=== PATIENT | male | born 1940 | race Caucasian/White ===

== ENCOUNTER → 2019-05-05 | Outpatient (CLI) | payer MEDICARE, BC ==
[~2019-05-05] MED LIST: BAYER CHEWABLE81 MG PO; CARDIZEM CD360 MG PO; HUMALOG100 UNIT/1; LASIX 20 MG TAB20 MG PO; LISINOPRIL PO; MULTIVITAMIN PO; PRAVASTATIN PO; VITAMIN D PO; VITAMINC500 PO
== END ==
LOC: M.RAD 15:38
DX: Z13.820 Encounter for screening for osteoporosis (principal); M19.90 Unspecified osteoarthritis, unspecified site; M54.5 Low back pain; Z87.81 Personal history of (healed) traumatic fracture

== ENCOUNTER 2021-04-20 11:27 | Emergency (ER) | payer MEDICARE, BC ==
[~2021-04-20] VITALS: Ht 175.3 cm; Wt 102.9 kg
[2021-04-20 12:10] LABS: URINE BILIRUBIN NEGATIVE (Negative); URINE BLOOD NEGATIVE (Negative); URINE CLARITY CLEAR; URINE COLOR YELLOW; URINE GLUCOSE-RANDOM NEGATIVE (Negative); URINE KETONES NEGATIVE (Negative); URINE LEUKOCYTES NEGATIVE (Negative); URINE NITRITE NEGATIVE (Negative); URINE PROTEIN NEGATIVE (Negative)
[2021-04-20 12:18] LABS: ABSOLUTE MONOCYTES 0.6 thou/uL (0.0-1.2); BASOPHILS 0.3 %; EOSINOPHILS 0.3 %; HEMATOCRIT 43.3 % (42.0-52.0); HEMOGLOBIN 15.3 gm/dL (14.0-18.0); MCHC 35.3 g/dL (28.0-37.0); MCV 93.4 fL (80.0-100.0); MONOCYTES 5.7 %; MPV 7.9 fl. (7.2-11.1); NUCLEATED RBCS 0 /100WBC; PLATELET COUNT* 162 thou/uL (150-400); POLYS 84.7 %; RBC 4.63 mil/uL (4.50-6.00); RDW-CV 12.8 % (10.5-14.5); WBC 10.6 thou/uL (4.0-11.0)
[2021-04-20 12:26] LABS: CREATININE 1.5 mg/dL (0.6-1.3); POTASSIUM 4.1 mmol/L (3.5-5.1)
[2021-04-20 14:34] VITALS: BP 143/60
--- NOTE | 2021-04-21 09:48 | EKG ---
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1940 Requested By: Billy Ochoa Order Number: [id number] MD: William Valenzuela Measurements Intervals [place] Rate: 78 P: 51 NC: 215 QRS: -3 QRSD: 107 T: -40 QT: 404 QTc: 461 Interpretive Statements Sinus rhythm Atrial premature complexes Borderline prolonged NC interval Anteroseptal infarct, old Borderline T abnormalities, inferior leads No previous ECG available for comparison Electronically Signed On 04-21-2021 9:47:48 CDT by William Valenzuela [email or web address] <ELECTRONICALLY SIGNED> By: William Valenzuela MD, FACC 04/21/21 0947 1127 1127 William Valenzuela MD, [facility] /EPI
[2021-04-21] MEDS ORDERED: CIPROFLOXACIN500 M1 PO (12:39)
[2021-04-21] MEDS ORDERED: FLAGYL500 M1 PO (12:39)
== END 2021-04-20 14:35 | disposition home or self-care (01) ==
LOC: M.ERS 11:27
PROVIDERS: Emergency Medicine
DX: E86.0 Dehydration (principal); R53.1 Weakness; R55 Syncope and collapse; R61 Generalized hyperhidrosis; R19.7 Diarrhea, unspecified; R51.9 Headache, unspecified; Z79.4 Long term (current) use of insulin; Z79.899 Other long term (current) drug therapy; Z79.82 Long term (current) use of aspirin; Z88.8 Allergy status to other drugs, medicaments and biological substances; W19.XXXA Unspecified fall, initial encounter; Y93.89 Activity, other specified; Y92.89 Other specified places as the place of occurrence of the external cause; Y99.8 Other external cause status

== ENCOUNTER 2021-04-21 10:04 | Emergency (ER) | payer MEDICARE, BC ==
[~2021-04-21] VITALS: Ht 177.8 cm; Wt 96.2 kg
[2021-04-21 10:24] LABS: ABSOLUTE LYMPHOCYTES 1.4 thou/uL (0.8-5.3); ABSOLUTE MONOCYTES 0.8 thou/uL (0.0-1.2); ABSOLUTE NEUTROPHILS 9.6 thou/uL (1.6-8.1); BASOPHILS 0.4 %; EOSINOPHILS 0.2 %; HEMOGLOBIN 14.9 gm/dL (14.0-18.0); MCH 32.7 pg (26.0-34.0); MCHC 34.7 g/dL (28.0-37.0); MCV 94.3 fL (80.0-100.0); MONOCYTES 6.8 %; MPV 8.3 fl. (7.2-11.1); NUCLEATED RBCS 0 /100WBC; PLATELET COUNT* 186 thou/uL (150-400); POLYS 80.6 %; RBC 4.56 mil/uL (4.50-6.00); RDW-CV 12.8 % (10.5-14.5); WBC 11.9 thou/uL (4.0-11.0)
[2021-04-21 10:35] LABS: CALCIUM 8.8 mg/dL (8.5-10.1); CREATININE 1.7 mg/dL (0.6-1.3)
[2021-04-21 10:39] LABS: ALBUMIN 3.8 g/dL (3.4-5.0); TOTAL BILIRUBIN 1.3 mg/dL (<0.1-1.0); TOTAL PROTEIN 7.2 g/dL (6.4-8.2)
[2021-04-21] MEDS ORDERED: CIPROFLOXACIN500 M1 PO (12:39)
[2021-04-21] MEDS ORDERED: FLAGYL500 M1 PO (12:39)
[2021-04-21 13:02] VITALS: BP 111/70
--- NOTE | 2021-04-22 10:29 | EKG ---
[place] [address] ELECTROCARDIOGRAM REPORT Name: SHAWNA SAMUEL Room: 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1940 Requested By: Kash Covarrubias Order Number: [id number] MD: Trey Galeano Measurements Intervals [place] Rate: 80 P: 13 IA: 199 QRS: -22 QRSD: 108 T: QT: 391 QTc: 451 Interpretive Statements Sinus rhythm Atrial premature complex Borderline left axis deviation Anteroseptal scar cannot be excluded Nonspecific T abnormalities, lateral leads Compared to ECG 04/20/2021 11:27:23 Myocardial infarct finding is less prominent T-wave abnormality still present Electronically Signed On 04-22-2021 10:29:28 CDT by Trey Galeano [email or web address] <ELECTRONICALLY SIGNED> By: Trey Galeano MD, FACC 04/22/21 1029 1014 1014 Trey Galeano MD, FACC /EPI
== END 2021-04-21 13:03 | disposition home or self-care (01) ==
LOC: M.ERS 10:04
PROVIDERS: Emergency Medicine
DX: K52.9 Noninfective gastroenteritis and colitis, unspecified (principal); Z20.822 Contact with and (suspected) exposure to COVID-19; E11.9 Type 2 diabetes mellitus without complications; I10 Essential (primary) hypertension; Z79.82 Long term (current) use of aspirin; Z79.899 Other long term (current) drug therapy; Z88.8 Allergy status to other drugs, medicaments and biological substances

== ENCOUNTER 2021-06-12 13:58 | Emergency (ER) | payer MEDICARE, BC ==
[~2021-06-12] VITALS: Ht 177.8 cm; Wt 93.9 kg
[~2021-06-12 13:58] MED LIST changes: +CIPROFLOXACIN500 M1 PO; +FLAGYL500 M1 PO
[2021-06-12] MEDS ORDERED: NORVASC10 MG PO (14:13)
[2021-06-12] MEDS ORDERED: DULCOLAX STOOL100 M1 PO (14:14)
[2021-06-12] MEDS ORDERED: ROSUVASTATIN CA10 MG PO (14:14)
[2021-06-12] MEDS ORDERED: SENNA8.8 MG/5 M PO (14:14)
[2021-06-12] MEDS ORDERED: FINASTERIDE5 MG PO (14:14)
[2021-06-12] MEDS ORDERED: FISH OIL 1,0001 EAC9 PO (14:14)
[2021-06-12 14:41] LABS: MCH 32.2 pg (26.0-34.0)
[2021-06-12 14:43] LABS: ABSOLUTE LYMPHOCYTES 1.2 thou/uL (0.8-5.3); ABSOLUTE MONOCYTES 0.5 thou/uL (0.0-1.2); ABSOLUTE NEUTROPHILS 2.2 thou/uL (1.6-8.1); BASOPHILS 0.3 %; EOSINOPHILS 0.5 %; HEMATOCRIT 39.7 % (42.0-52.0); HEMOGLOBIN 13.9 gm/dL (14.0-18.0); LYMPHOCYTES 31.6 %; MCHC 34.9 g/dL (28.0-37.0); MCV 92.4 fL (80.0-100.0); MONOCYTES 12.7 %; NUCLEATED RBCS 0 /100WBC; PLATELET COUNT* 136 thou/uL (150-400); POLYS 54.9 %; RDW-CV 12.7 % (10.5-14.5); WBC 3.9 thou/uL (4.0-11.0)
[2021-06-12 14:50] LABS: CALCIUM 8.6 mg/dL (8.5-10.1); CREATININE 1.1 mg/dL (0.6-1.3)
[2021-06-12 14:54] LABS: ALBUMIN 3.4 g/dL (3.4-5.0); MAGNESIUM 2.1 mg/dL (1.8-2.4); TOTAL BILIRUBIN 0.4 mg/dL (<0.1-1.0); TOTAL PROTEIN 6.8 g/dL (6.4-8.2)
[2021-06-12] MEDS ORDERED: TESSALON PERLE100 MG PO (16:28)
[2021-06-12 16:44] VITALS: BP 128/80
--- NOTE | 2021-06-13 16:33 | EKG ---
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1940 Requested By: Keyur Matute Order Number: [id number] MD: William Valenzuela Measurements Intervals [place] Rate: 80 P: -19 SD: 201 QRS: -24 QRSD: 107 T: 74 QT: 397 QTc: 458 Interpretive Statements Sinus rhythm septal q waves Borderline left axis deviation Compared to ECG 04/21/2021 10:14:48 no change Electronically Signed On 06-13-2021 16:33:18 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
== END 2021-06-12 16:45 | disposition home or self-care (01) ==
LOC: M.ERS 13:58
PROVIDERS: Emergency Medicine Emergency Medical Services
DX: U07.1 COVID-19 (principal); E11.9 Type 2 diabetes mellitus without complications; I10 Essential (primary) hypertension; Z79.899 Other long term (current) drug therapy; Z79.82 Long term (current) use of aspirin; Z88.8 Allergy status to other drugs, medicaments and biological substances